=== PATIENT | male | born 1950 | race Caucasian/White ===

== ENCOUNTER 2024-12-31 16:16 | Emergency (ER) | payer OTHER ==
[~2024-12-31] VITALS: Ht 190.5 cm; Wt 104.3 kg
[2024-12-31] MEDS ORDERED: IBUP-1490 PO (18:25)
[2024-12-31 18:46] VITALS: BP 154/84; TEMP 98.3; O2SAT 96
== END 2024-12-31 18:47 | disposition home or self-care (01) ==
LOC: ER 16:28
DX: S13.4XXA Sprain of ligaments of cervical spine, initial encounter (principal); S80.02XA Contusion of left knee, initial encounter; V89.2XXA Person injured in unspecified motor-vehicle accident, traffic, initial encounter; Y93.89 Activity, other specified; Y92.410 Unspecified street and highway as the place of occurrence of the external cause; Y99.8 Other external cause status
CPT/HCPCS: 72125-TC; 73564-TC